=== PATIENT | female | born 1990 | race Two or more races ===

== ENCOUNTER 2017-12-28 17:55 | Observation (INO) | payer MEDICAID ==
[~2017-12-28] VITALS: Ht 154.9 cm; Wt 79.8 kg
[2017-12-28] MEDS ORDERED: PREN1TAB78 MT (22:14)
== END 2017-12-28 22:40 | disposition home or self-care (01) ==
LOC: L&D 17:55
PROVIDERS: ADMIT Obstetrics & Gynecology; ATTEND Obstetrics & Gynecology
DX: O26.893 Other specified pregnancy related conditions, third trimester (principal); R10.9 Unspecified abdominal pain; O36.8130 Decreased fetal movements, third trimester, not applicable or unspecified; Z3A.28 28 weeks gestation of pregnancy
CPT/HCPCS: 76805; 82731; G0378